=== PATIENT | female | born 1995 | race Caucasian/White ===

== ENCOUNTER → 2019-07-07 | Outpatient (REF) | payer OTHER | LOC: M LAB LCGH 12:13 | PROVIDERS: ATTEND Obstetrics & Gynecology | DX: Z12.4 Encounter for screening for malignant neoplasm of cervix (principal) ==

== ENCOUNTER → 2021-11-24 | Outpatient (CLI) | payer OTHER ==
[~2021-11-24] MED LIST: AMIT10TA7 PO; CYCL-707 PO; LEVO25TA5 PO; OMEP-173 PO; TOPI100T9 PO; VALA1TAB5 PO; VITA500C24 PO; VITATAB54 PO
== END ==
LOC: M LABSMTC 10:33
PROVIDERS: ATTEND Anesthesiology
DX: Z01.812 Encounter for preprocedural laboratory examination (principal); Z20.822 Contact with and (suspected) exposure to COVID-19

== ENCOUNTER 2021-11-29 11:02 | Day surgery (SDC) | payer OTHER ==
[~2021-11-29] VITALS: Ht 162.6 cm; Wt 62.6 kg
[~2021-11-29 11:02] MED LIST changes: +NS 1,000 ML IV ONE
[2021-11-29] MEDS ORDERED: fentaNYL 100 MCG/2 ML INJECTION As Ordered ONE (12:04)
[2021-11-29] MEDS ORDERED: propofoL 200 MG/20 ML VIAL As Ordered ONE ×2 (12:05→12:28)
[2021-11-29] MEDS ORDERED: LIDOCAINE 2% 100MG/5ML SDV (FOR ANES.) As Ordered ONE (12:05)
[2021-11-29 13:00] VITALS: BP 111/62
== END 2021-11-29 13:15 | disposition home or self-care (01) ==
LOC: M OPP 11:02
PROVIDERS: ATTEND Internal Medicine Gastroenterology
DX: K64.8 Other hemorrhoids (principal); R19.7 Diarrhea, unspecified; R93.3 Abnormal findings on diagnostic imaging of other parts of digestive tract; K25.9 Gastric ulcer, unspecified as acute or chronic, without hemorrhage or perforation; Q07.00 Arnold-Chiari syndrome without spina bifida or hydrocephalus; I88.0 Nonspecific mesenteric lymphadenitis; Z79.899 Other long term (current) drug therapy; Z88.5 Allergy status to narcotic agent; Z91.048 Other nonmedicinal substance allergy status; Z80.1 Family history of malignant neoplasm of trachea, bronchus and lung; Z80.3 Family history of malignant neoplasm of breast; Z80.6 Family history of leukemia; Z80.7 Family history of other malignant neoplasms of lymphoid, hematopoietic and related tissues
CPT/HCPCS: 43239; 45380; 88305; J3010

== ENCOUNTER → 2022-01-03 | Outpatient (CLI) | payer OTHER ==
[~2022-01-03] MED LIST changes: -NS 1,000 ML IV ONE
== END ==
LOC: M WHC 08:32
PROVIDERS: ATTEND Internal Medicine Gastroenterology
DX: K52.9 Noninfective gastroenteritis and colitis, unspecified (principal)

== ENCOUNTER → 2022-12-14 | Outpatient (CLI) | payer OTHER ==
[~2022-12-14] MED LIST changes: +E-Z-GAS II EFFERVESCENT PACKET (SODIUM BICARB./CITRIC ACID/SIMETHICONE) As Ordered ONE; +E-Z-HD 98% w/w 340GM SUSP BTL As Ordered ONE; +E-Z-PAQUE 96% w/w SUSP 176GM BTL As Ordered ONE
== END ==
LOC: M RAD 09:54
PROVIDERS: ATTEND Internal Medicine Gastroenterology
DX: K21.9 Gastro-esophageal reflux disease without esophagitis (principal); K22.89 Other specified disease of esophagus

== ENCOUNTER 2023-02-06 12:46 | Day surgery (SDC) | payer OTHER ==
[~2023-02-06] VITALS: Ht 162.6 cm; Wt 72.8 kg
[~2023-02-06 12:46] MED LIST changes: -E-Z-GAS II EFFERVESCENT PACKET (SODIUM BICARB./CITRIC ACID/SIMETHICONE) As Ordered ONE; -E-Z-HD 98% w/w 340GM SUSP BTL As Ordered ONE; -E-Z-PAQUE 96% w/w SUSP 176GM BTL As Ordered ONE; +NS 1,000 ML IV ONE
[2023-02-06] MEDS ORDERED: propofoL 200 MG/20 ML VIAL As Ordered ONE (13:18)
[2023-02-06] MEDS ORDERED: LIDOCAINE 2% 100MG/5ML SDV (FOR ANES.) As Ordered ONE (13:18)
[2023-02-06] MEDS ORDERED: fentaNYL 100 MCG/2 ML INJECTION As Ordered ONE (14:32)
[2023-02-06 14:49] VITALS: TEMP 97.3
[2023-02-06 15:05] VITALS: BP 110/71; O2SAT 100
== END 2023-02-06 15:10 | disposition home or self-care (01) ==
LOC: M OPP 12:46
PROVIDERS: ATTEND Internal Medicine Gastroenterology
DX: K22.89 Other specified disease of esophagus (principal); K29.70 Gastritis, unspecified, without bleeding; K20.0 Eosinophilic esophagitis; Z79.899 Other long term (current) drug therapy; Z88.5 Allergy status to narcotic agent; Z91.048 Other nonmedicinal substance allergy status
CPT/HCPCS: 43239; 88305; 91035; J3010

== ENCOUNTER → 2023-05-31 | Outpatient (REF) | payer OTHER ==
[~2023-05-31] MED LIST changes: -NS 1,000 ML IV ONE
[2023-05-31 18:09] LABS: CPK CREATINE PHOSPHOKINASE 76 U/L (34-145); IRON (FE) 122 UG/DL (50-170)
[2023-05-31 18:26] LABS: FOLATE > 24.00 NG/ML (>5.4); MAGNESIUM LEVEL 2.2 MG/DL (1.8-2.4); PHOSPHORUS LEVEL 3.8 MG/DL (2.5-4.9); TOTAL 25(OH) VITAMIN D 33.5 NG/ML (20.0-100.0); VITAMIN B12 LEVEL 316 PG/ML (211-911)
== END ==
LOC: M SFHCRHEU 10:34
PROVIDERS: ATTEND Internal Medicine
DX: M25.50 Pain in unspecified joint (principal); R53.82 Chronic fatigue, unspecified; M79.10 Myalgia, unspecified site

== ENCOUNTER → 2023-09-13 | Outpatient (CLI) | payer OTHER | LOC: M SLEEP HO 08-09 13:51 | PROVIDERS: ATTEND Internal Medicine | DX: G47.33 Obstructive sleep apnea (adult) (pediatric) (principal) ==

== ENCOUNTER → 2023-10-29 | Outpatient (CLI) | payer OTHER ==
[~2023-10-29] MED LIST changes: +CELE100C PO; +PHEN15CA6 PO; +PULM0.25 PO
== END ==
LOC: M RAD 13:06
PROVIDERS: ATTEND Otolaryngology
DX: R22.1 Localized swelling, mass and lump, neck (principal)